=== PATIENT | male | born 1940 | race Caucasian/White ===

== ENCOUNTER 2017-05-03 09:57 | Day surgery (SDC) | payer OTHER ==
[~2017-05-03] VITALS: Ht 172.7 cm; Wt 79.0 kg
[~2017-05-03 09:57] MED LIST: ALLOPURINOL300 MG PO; ASPIR-LOW81 M1 PO; FLOMAX0.4 MG PO; HYZAAR 100-11 TABLET PO; LEVOTHYROXINE25 MCG PO; LISINOPRIL40 MG PO; LOSARTAN POTAS100 MG PO; METOPROLOL SUCC50 MG PO; SELENIUM200 MC3 PO
[2017-05-03] MEDS ORDERED: ASPIRIN81 M2 PO (10:17)
== END 2017-05-03 17:32 | disposition home or self-care (01) ==
LOC: CATH 09:57
DX: I25.10 Atherosclerotic heart disease of native coronary artery without angina pectoris (principal); I10 Essential (primary) hypertension; I65.22 Occlusion and stenosis of left carotid artery; E78.5 Hyperlipidemia, unspecified; F17.210 Nicotine dependence, cigarettes, uncomplicated; Z79.82 Long term (current) use of aspirin; Z82.49 Family history of ischemic heart disease and other diseases of the circulatory system
CPT/HCPCS: C1769; C1887; J1644; J2250; J3010

== ENCOUNTER → 2017-05-30 | Outpatient (CLI) | payer OTHER ==
[~2017-05-30] MED LIST changes: +ASPIRIN81 M2 PO
== END | disposition home or self-care (01) ==
LOC: RAD 10:00
DX: Z01.818 Encounter for other preprocedural examination (principal); I25.10 Atherosclerotic heart disease of native coronary artery without angina pectoris; I65.29 Occlusion and stenosis of unspecified carotid artery; Z87.898 Personal history of other specified conditions; J90 Pleural effusion, not elsewhere classified; R91.1 Solitary pulmonary nodule; K57.90 Diverticulosis of intestine, part unspecified, without perforation or abscess without bleeding; R91.8 Other nonspecific abnormal finding of lung field; K63.89 Other specified diseases of intestine
CPT/HCPCS: 71250; 74176

== ENCOUNTER 2017-07-13 10:07 | Inpatient (IN) | payer OTHER ==
[~2017-07-13] VITALS: Ht 172.7 cm; Wt 75.1 kg
[2017-07-13 11:03] LABS: EOSINOPHIL (%) 1.1 % (0-5); EOSINOPHIL COUNT 0.1 K/uL (0-0.3); IMMATURE GRANULOCYTE (%) 0.5 % (0.0-0.7); INSTRUMENT ABS NEUTROPHIL CT 5.8 K/uL; LYMPHOCYTE COUNT 0.8 K/uL (1.0-2.8); MCH 35.2 PG (29.0-34.0); MCHC 33.1 G/DL (30.0-36.0); MCV 106.6 FL (86-99); MEAN PLAT.VOLUME 10.2 uM^3 (9.0-12.4); MONOCYTE (%) 8.5 % (3-12); MONOCYTE COUNT 0.6 K/uL (0-0.8); NEUTROPHIL (%) 78.8 % (45-76); NEUTROPHIL COUNT 5.8 K/uL (1.8-6.4); PLATELET COUNT 260 K/uL (156-360); RBC DIS.WIDTH-CV 18.4 % (11.8-14.6); RBC DIS.WIDTH-SD 71.7 % (39-53); RED BLOOD COUNT 2.44 M/uL (4.00-5.50); WHITE BLOOD COUNT 7.3 K/uL (4.1-10.2)
[2017-07-13 11:11] LABS: INTER. NORMALIZED RATIO 1.2; PROTHROMBIN TIME 13.2 SEC (10.2-12.9)
[2017-07-13 11:13] LABS: CHLORIDE 106 mEq/L (99-109); POTASSIUM 3.9 mEq/L (3.7-5.4); SODIUM 135 mEq/L (136-147)
[2017-07-13 11:14] LABS: PTT 29.7 SEC (25-37)
[2017-07-13 11:15] LABS: GLUCOSE 97 mg/dL (70-99)
[2017-07-13 11:16] LABS: ANION GAP 8 MEQ/L (2-14)
[2017-07-13 11:18] LABS: ALKALINE PHOSPHATASE 141 IU/L (3-129)
[2017-07-13 11:19] LABS: GFR ESTIMATE (CALCULATED) > 59 mL/min/
[2017-07-13 11:22] LABS: CREATINE KINASE 24 IU/L (1-294); TOTAL CK 24 IU/L (1-294)
[2017-07-13 11:27] LABS: TROP-I INTERPRETATION NEGATIVE; TROPONIN-I 0.03 ng/mL (0.0-0.30)
[2017-07-13 11:43] LABS: UREA NITROGEN (BUN) 14 mg/dL (9-23)
[2017-07-13 15:25] VITALS: BP 193/77
[2017-07-13] MEDS ORDERED: LEVOTHYROXINE88 MCG PO (16:23)
[2017-07-13] MEDS ORDERED: DOXYCYCLINE HY100 MG PO (16:26)
[2017-07-13] MEDS ORDERED: PROTONIX40 MG PO (16:28)
[2017-07-13] MEDS ORDERED: LOPRESSOR50 MG PO (16:30)
[2017-07-13] MEDS ORDERED: BUSPAR10 MG PO (16:32)
[2017-07-13] MEDS ORDERED: VENTOLIN HFA18 GM IH (16:33)
[2017-07-13] MEDS ORDERED: LIPITOR80 MG PO (16:34)
[2017-07-13] MEDS ORDERED: LASIX20 MG PO (16:34)
[2017-07-13] MEDS ORDERED: MUPIROCIN22 GM TP (16:39)
[2017-07-13] MEDS ORDERED: AMIODARONE HCL100 MG PO (16:50)
[2017-07-13] MEDS ORDERED: PERCOCET 10/1 TABLET PO (16:51)
[2017-07-13 19:00] VITALS: BP 121/57
[2017-07-13 23:00] VITALS: BP 149/71
[2017-07-14] VITALS (12 sets, daily range): BP systolic 133–186; BP diastolic 64–89
[2017-07-14 05:36] LABS: HEMATOCRIT 22.7 % (38.0-50.0); MCH 35.7 PG (29.0-34.0); MCHC 33.5 G/DL (30.0-36.0); MCV 106.6 FL (86-99); MEAN PLAT.VOLUME 10.4 uM^3 (9.0-12.4); PLATELET COUNT 231 K/uL (156-360); RBC DIS.WIDTH-CV 18.4 % (11.8-14.6); RBC DIS.WIDTH-SD 70.8 % (39-53); RED BLOOD COUNT 2.13 M/uL (4.00-5.50); WHITE BLOOD COUNT 5.3 K/uL (4.1-10.2)
[2017-07-14 06:41] LABS: ANION GAP 8 MEQ/L (2-14); CHLORIDE 105 MEQ/L (99-109); GFR ESTIMATE (CALCULATED) > 59 mL/min/; GLUCOSE 77 mg/dL (70-99); POTASSIUM 3.7 MEQ/L (3.7-5.4); SAMPLE HEMOLYSIS CHECK 0; SAMPLE ICTERIC CHECK 0; SAMPLE LIPEMIA CHECK 0; SODIUM 138 MEQ/L (136-147); UREA NITROGEN (BUN) 12 mg/dL (9-23)
[2017-07-14 08:24] LABS: TROP-I INTERPRETATION NEGATIVE; TROPONIN-I 0.04 ng/mL (0.0-0.30)
[2017-07-15 04:07] VITALS: BP 172/79
[2017-07-15 08:38] VITALS: BP 166/74
== END 2017-07-15 11:54 | disposition home health service (06) | DRG 641 ==
LOC: EME 10:07 → EDOF 13:30 → 4EAST 13:30 → ENRESERV 13:31 → 4EAST 15:19
PROVIDERS: Emergency Medicine; Pediatrics; Physician Assistant
PROC: 30233N1 Transfusion of Nonautologous Red Blood Cells into Peripheral Vein, Percutaneous Approach (ICD-10-PCS; principal; 2017-07-14)
DX: E87.70 Fluid overload, unspecified (principal); I10 Essential (primary) hypertension; D64.9 Anemia, unspecified; M10.9 Gout, unspecified; N40.0 Benign prostatic hyperplasia without lower urinary tract symptoms; K21.9 Gastro-esophageal reflux disease without esophagitis; E03.9 Hypothyroidism, unspecified; I25.10 Atherosclerotic heart disease of native coronary artery without angina pectoris; I25.5 Ischemic cardiomyopathy; E78.5 Hyperlipidemia, unspecified; E55.9 Vitamin D deficiency, unspecified; F10.20 Alcohol dependence, uncomplicated; F41.9 Anxiety disorder, unspecified; Z95.1 Presence of aortocoronary bypass graft; Z79.82 Long term (current) use of aspirin; Z87.891 Personal history of nicotine dependence
CPT/HCPCS: 36415; 71010; 71020; 71275; 80053; 80061; 80069; 82306 GA; 82550; 82553; 83036; 83880; 83880 GA; 84439; 84443; 84484; 85014; 85018; 85025; 85027; 85610; 85730; 86850; 86900; 86901; 86920; 93005; 93306; 99281; 99285; J1940; P9016